=== PATIENT | female | born 1975 | race Caucasian/White ===

== ENCOUNTER 2020-08-07 04:34 | Observation (INO) | payer SELFPAY ==
[2020-08-07] VITALS (15 sets, daily range): BP systolic 104–149; BP diastolic 64–85; PULSE 60–105; RESP 12–20; TEMP 36.3–37.2; O2SAT 94–100; BMI 29.0
--- NOTE | 2020-08-07 | SCC_ITS ---
Procedure: 1. Cystoscopy with left retrograde ureteropyelogram, ureteroscopy, laser, stent 18.4 seconds of fluoroscopic guidance, for a cumulative dose of 4.41 mGy, was provided to Dr. Amos by the radiology department. C-arm images of the abdomen/pelvis were saved for the patient's permanent record. [facility]
--- NOTE | 2020-08-07 05:32 | P.HP_ITS ---
Providers/Chief Complaint Admitting Physician: Mauricio Amos MD Chief Complaint: Refractory Renal Colic, stone History of Present Illness Vicky Temlpe is a 44 year old female direct admitted from [facility] for diagnosis of ureteral stone with refractory renal colic; failed outpatient management and returned for second ED visit with uncontrolled pain, nausea, vomitting. No gross hematuria. Pain was described as severe. Reported a history of prior kidney stones. Work-up, 08/05/2020 and 08/06/2020. No evidence for UTI but did have microscopic hematuria. White count was 6.2, potassium was 3.1, creatinine 0.6, normal LFTs. CT scan, stone protocol reportedly demonstrated a 5 mm LEFT DISTAL ureteral stone. Additional nonobstructing right renal calculus. On her initial visit 08/05/2020 her symptoms were well controlled and she was discharged for outpatient management but returned on 08/06/2020 with refractory symptoms and transfer request was made by [place] to [facility]. PLANS: 1. Obtain KUB to compare with CT scan once it is loaded into the system 2. Reviewed her options which include further conservative management inpatient or outpatient versus surgical intervention. Reviewed ESWL versus endoscopy. Ultimately she decided to proceed with endoscopy. Plan will be for cystoscopy, LEFT: Retrograde, ureteroscopy, laser, stent. Benefits risk potential c omplications alternatives perioperative expectations and limitations fully reviewed. Informed consent was obtained. We will have her sign the appropriate papers preoperatively. 3. She has not had Covid in the last 90 days or ever, she has not been vaccinated, she has no symptoms of Covid, and has not been tested in the last 5 to 7 days. We will observe routine Covid precautions perioperatively. Review of Systems Const: Reports: malaise; Denies: fever(s) or chills Eyes: Reports: blurry vision; Denies: change in vision ENMT: Denies: hoarseness Card: Denies: chest pain or palpitations Resp: Denies: dyspnea, productive cough, non-productive cough or wheezing GI: Reports: abdominal pain, nausea and vomiting : Reports: flank pain; Denies: hematuria Musc: Denies: joint pain, joint warmth or joint stiffness Skin/Breast: Denies: rash Neuro: Denies: confusion, behavioral changes or Slurred speech present Psych: Denies: anxiety or depression Endo: Denies: flushing John Paul/Lymph: Denies: easy bruising, easy bleeding or tender lymph nodes All/Imm: Denies: urticaria or acute wheezing Medications/Allergies Home Medications Medication Instructions Recorded Confirmed Last Taken Type No Known Home Medications 08/07/20 08/07/20 Unknown History Allergies Allergy/AdvReac Type Severity Reaction Status Date / Time No Known Drug Allergies Allergy Unknown Unknown Verified 08/07/20 05:42 PFSH Acute PFSH: Surgical History History of bariatric surgery History of tubal ligation Social History Smoking and tobacco status: never smoked Second hand smoke exposure: No ( Not for years ) Alcohol intake: current Alcohol intake frequency: holidays/special occasions only Alcohol type: hard liquor Substance/Drug Use: never Physical Exam Const: COMMON NORMALS: alert GENERAL APPEARANCE: well kempt and well developed ORIENTATION/CONSCIOUSNESS: not confused HENMT: HEAD & SCALP: normocephalic and atraumatic Eye: COMMON NORMALS: conjunctivae normal and no scleral icterus Neck/C-Spine: COMMON NORMALS: full ROM GENERAL: Yes normal visual inspection Lymph: LYMPHATIC: No no lymphadenopathy noted and No no lymphedema noted Chest: OTHER: Normal chest wall movement Resp: COMMON NORMALS: normal respiratory effort EFFORT & INSPECTION: No labored and No Actively coughing AUSCULTATION: clear to auscultation bilaterally and no wheezes Cardio: COMMON NORMALS: regular rate and regular rhythm BRUITS: no carotid bruits GI: COMMON NORMALS: Soft to palpation and no masses PALPATION: Yes Tenderness to palpation present (GI) Details: LUQ : BLADDER/KIDNEY EXAM: Yes bladder normal to palpation and Yes CVA tenderness on the left Back/Pelvis: GENERAL BACK: Yes CVA tenderness CVA tenderness: left Extremity: COMMON NORMALS: no clubbing, cyanosis or edema Neuro: COMMON NORMALS: no focal motor deficits SENSORIUM/ORIENTATION: Yes alert Psych: COMMON NORMALS: mental status grossly normal, Normal thought process present and cooperative APPEARANCE: Yes grossly normal and Yes well kempt ATTITUDE: Yes calm and Yes engaged THOUGHT PROCESS: Normal thought process present Skin: COMMON NORMALS: no rashes or lesions noted and no jaundice A&P Assessment and plan (1) Renal colic: Refractory left renal colic associated with 5 mm left distal ureteral obstructing stone on CT scan 08/05/2020. Status: Acute (2) Ureteral calculus: 5 mm left distal ureteral stone diagnosed 08/05/[address] scan at [facility]. Failed conservative management and presented with refractory nausea vomiting and pain back to the emergency department and was transferred here for further evaluation. Status: Acute (3) Intractable nausea and vomiting: Status: Acute (4) Urolithiasis: Multi stone former Status: Acute Attestations Medical Necessity Statement*: Failed conservative management of 5 mm left distal ureteral stone. Unable to hold fluids down. Could not control pain on outpatient management appropriate protocols. Admitted for further evaluation and treatment. Time Spent in Patient Care: Greater than 35 minutes Coding Level of Care Code Acute Rate Clerk for [facility] Fwd Diagnoses Renal colic N23 Ureteral calculus N20.1 Intractable nausea and vomiting R11.2 Urolithiasis N20.9
[2020-08-07] MEDS: sodium chloride 0.9% 1,000 ML 100 ML IV (06:20)
--- NOTE | 2020-08-07 07:24 | XR_ITS ---
WS: [id number] KUB, AP view, 08/07/2020 Clinical Data: 5 mm left distal ureteral stone Comparison: CT abdomen and pelvis, 08/05/2020. Findings: No abnormal intraabdominal masses are seen. There is no dilatated small bowel or evidence of obstruct ion. No definite renal calcifications are seen. Stool and fecal material obscures detail over the left kid francisco j. There are numerous phleboliths in the true pelvis and is difficult to evaluate whether one repre sents a ureteral vesicle junction calculus. XR/XR KUB [id number] Impression: Negative for definite renal or ureteral calculi.
--- NOTE | 2020-08-07 11:28 | PC.CHAP ---
Pastoral Care Encounter/Spiritual Assessment Type of Contact [] Declined haul truck driver visit [] Patient/Family/Request visit [] Outpatient visit [] Follow-up visit [] Physician referral [] Code/Alert [x] Routine visit [] Staff referral [] Actively dying [] Patient sleeping [] Family support [] [] Out of room [] Palliative care [] [x] Receiving care in room [] Pre-surgical visit [] Trauma [] Long length of stay [] ICU visit [] Other: Relational/Emotional Strength [x] Patient feels connected with others/family/visitors/staff [] Distress [] Loneliness/isolation [] Abandonment Spirituality of Patient [x] Person of Rajni [] Attends Cheondoism of their Rajni [x] Believes in Prayer [] Reads Bible or Yarsanism materials [] There are Spiritual issues to be addressed Discharge Door Operator Interventions [x] Prayer [x] Active listening [x] Non-anxious presence [x] Spiritual/emotional support [] Crisis/trauma care [x] Spiritual counseling [] Bereavement support [] Provided bereavement packet [] Provided Bible/devotional materials [] Provided toy/stuffed animal, coloring book to patient or family member [] Provided Communion [] Anointing/[place] [] Salvation [x] Completed spiritual assessment [] Other: Impact on Illness or Injury [] Angry [] Fearful [x] Anxious [] Often cries [] Exhaustion [x] Unable to work [] Unable to attend mandaeism [] Unable to walk/stand [] Unable to read [] Unable to drive [] Unable to eat/drink [] Unable to sleep [] Unable to be with family [] Patient intubated [] Other: Summary Respatory colic pain, doesn't about her health, check on what needs to done, negtive / desn't know when she can go home Time spent with patient 10 mins
--- NOTE | 2020-08-07 11:34 | PC.CHAP ---
Pastoral Care Encounter/Spiritual Assessment Type of Contact [] Declined motorcycle mechanic apprentice visit [] Patient/Family/Request visit [] Outpatient visit [x] Follow-up visit [] Physician referral [] Code/Alert [] Routine visit [] Staff referral [] Actively dying [] Patient sleeping [] Family support [] [] Out of room [] Palliative care [] [] Receiving care in room [] Pre-surgical visit [] Trauma [] Long length of stay [] ICU visit [] Other: Relational/Emotional Strength [] Patient feels connected with others/family/visitors/staff [] Distress [] Loneliness/isolation [] Abandonment Spirituality of Patient [] Person of Rajni [] Attends Rastafari of their Rajni [] Believes in Prayer [] Reads Bible or Worship materials [] There are Spiritual issues to be addressed Motor Coach Tour Operator Interventions [] Prayer [] Active listening [] Non-anxious presence [] Spiritual/emotional support [] Crisis/trauma care [] Spiritual counseling [] Bereavement support [] Provided bereavement packet [] Provided Bible/devotional materials [] Provided toy/stuffed animal, coloring book to patient or family member [] Provided Communion [] Anointing/[place] [] Salvation [] Completed spiritual assessment [] Other: Impact on Illness or Injury [] Angry [] Fearful [] Anxious [] Often cries [] Exhaustion [] Unable to work [] Unable to attend moravian [] Unable to walk/stand [] Unable to read [] Unable to drive [] Unable to eat/drink [] Unable to sleep [] Unable to be with family [] Patient intubated [] Other: Summary Follow-up visit Time spent with patient 5 mins
[2020-08-07] MEDS: HYDROmorphone 1 mg/mL INJ 1 mL 0.5 MG IVP ×2 (13:55→14:54)
[2020-08-07] MEDS: diphenhydrAMINE 50 mg/mL SDV 1mL 12.5 MG IVP (13:57)
[2020-08-07] MEDS: sodium chloride 0.9% 1,000 ML 30 ML IV (14:04)
--- NOTE | 2020-08-07 14:49 | ANES.PREANE2 ---
Pre-Anesthetic Assessment Pre-Anesthetic Assessment: Height/Weight: Height 1.68 m Weight 81.647 kg Temp Pulse Resp BP Pulse Ox 98.3 F 64 18 133/85 99 08/07/20 13:31 08/07/20 13:31 08/07/20 13:55 08/07/20 13:31 08/07/20 13:55 Proposed Procedure: Operation Date: 08/07/20 14:35 Proposed Procedures p Cystoscopy(Not Applicable) - Mauricio Amos MD s Retrograde Pyelogram(Left) - Mauricio Amos MD s Ureteroscopy(Left) - Mauricio Amos MD s Laser Lithotripsy(Left) - Mauricio Amos MD s Ureteral Stent Placement(Left) - Mauricio Amos MD Was Beta Abelino taken within 24 hours: N/A Was Clonidine taken within 24 hours: N/A Last intake: Intake Last Liquid Date 08/05/20 Last Liquid Time 18:00 Last Solid Date 08/05/20 Last Solid Time 21:00 Social: Social History: No alcohol and No tobacco Exam: Pre-Anes Outpt Exam: alert, oriented x 3, clear to auscultation bilaterally and regular rate & rhythm Airway: Submandibular: WNL Cervical ROM: WNL MP: 2 Dentition: Full History/ROS: No significant history except as noted : Comments: Kidney stones Anesthetic Plan: ASA status: 2 Anesthesia: General Risk of > 500 ml blood loss (7ml/kg in children): No Meds/Allergies Current Medications: Current Medications Generic Name Dose Route Start Last Admin Trade Name Freq PRN Reason Stop Dose Admin Sodium Chloride 1,000 mls @ 100 m ls/hr 08/07/20 05:00 08/07/20 12:57 Sodium Chloride 0.9% IV 0 mls/hr .Q10H CARLOS ALBERTO Infusion Sodium Chloride 1,000 mls @ 30 ml s/hr 08/07/20 13:45 08/07/20 14:04 Sodium Chloride 0.9% IV 08/08/20 13:44 30 mls/hr .Q24H CARLOS ALBERTO Administration PFSH Anesthesia PFSH: Surgical History (Updated 08/07/20 @ 06:58 by Mauricio Amos MD) History of bariatric surgery History of tubal ligation Social History Smoking and tobacco status: never smoked Second hand smoke exposure: No ( Not for years ) Alcohol intake: current Alcohol intake frequency: holidays/special occasions only Alcohol type: hard liquor Substance/Drug Use: never Data Anesthesia Cardiac Studies: No Data to Display
--- NOTE | 2020-08-07 15:10 | P.OP_ITS ---
Operative Report Date of procedure: August 07, 2020 Pre-op Diagnosis: Refractory left renal colic secondary to left distal ureteral stone Post-op diagnosis: same Procedure Done: 1. Cystoscopy with left retrograde ureteropyelogram, ureteroscopy, laser, stent Implants: Left ureteral stent: 6 Nigerien by 26 cm double-pigtail without string Pathology: Stone fragments Surgeon: Dandre Anesthesia: General Estimated blood loss: Minimal Urine output: Not measured Complications: None Findings: Left distal ureteral stone in the expected position. Fragmented with laser. Ureteral stent left indwelling. - Condition: stable Disposition: PACU Brief History: Vicky is a very pleasant 44-year-old white female who I evaluated for the first time today as a direct admission from [facility] emergency department for refractory symptoms related to left distal ureteral stone diagnosed on CT scan 08/05/2020. No evidence of infection but was having severe intractable nausea and vomiting along with pain. Follow-up KUB showed evidence of a faint calcification in the area of the left distal ureter consistent with the stone seen on CT scan. She was offered option for continued conservative management inpatient or outpatient but due to the severity of her symptoms and the difficulty controlling her nausea and pain even with significant dosing of parenteral antiemetics and narcotics she elected therefore to proceed with surgery. Options reviewed including ESWL as well as endoscopy and she chose endoscopic treatment. We reviewed that sometimes with severe inflammatory changes passing a wire and the stent is the best that can be done for passive dilation and drainage of the upper tract. In very rare circumstances the possibility of not achieving access from a retrograde perspective and therefore requiring antegrade access to the kidney via percutaneous nephrostomy tube placement and possibly antegrade passing of a wire and stent. That would have to be performed elsewhere at an institution capable of interventional radiology. Procedure: After urgent evaluation examination and obtaining of informed consent she was taken to the operating suite on 08/07/2020 where general anesthesia was administered without difficulty after appropriate timeout was performed, SCDs confirmed to be functioning, preoperative antibiotics administered, beta-nicolle protocol confirmed. Prepped and draped in usual sterile fashion in dorsolithotomy position paying careful attention to avoiding pressure points. 21 Nigerien cystoscope with 30 degree lens was introduced into the urethra meatus and advanced into the bladder under videoscopy. The bladder was systematically examined. No stone was seen. An 8 Nigerien cone-tipped catheter was intubated to the right ureteral orifice for right retrograde ureteropyelogram: Contrast was injected demonstrating normal course and caliber of the ureter with a filling defect consistent with a stone as expected based on CT scan and KUB findings. A flexible tip guidewire was then advanced up the left ureter bypassing the stone and the distal ureter was dilated with a 15 Nigerien 4 cm balloon.There was a tight band just below the level of the stones previous location and it required 12 boom of pressure to get it to open. The wire was secured to the drapes as a safety wire. The offset semirigid ureteroscope was advanced up the ureter next to the guidewire and the stone was encountered and fragmented with a 365 ?m thulium superpulse laser fiber and a small fragments that were then flushed free from the ureter and removed with baskets. Final inspection revealed no additional stone fragments but the area where the stone had been lodged was very inflamed both from its tight obstruction as well as the dilation. For that reason it was decided to leave a stent indwelling. The cystoscope was then backloaded over the guidewire and a 6 Nigerien by 26 cm double-pigtail stent without string was advanced over the guidewire through the cystoscope into appropriate position as confirmed via fluoroscopy and cystoscopy. The bladder was drained and the procedure was completed. She tolerated procedure well without complications and was awakened in the operating room and returned to recovery room in stable condition. PLANS: 1. If she recovers well and her symptoms are well controlled she could be discharged tonight. That will be arranged for pending that option. 2. If not then will plan on reevaluation for discharge in the morning.
--- NOTE | 2020-08-07 16:07 | SC_ITS ---
WS: [id number] C-arm fluoroscopy for cystoscopy, 08/07/2020 Clinical Data: Cystoscopy with left retrograde ureteropyelogram, ureteroscope Comparison: KUB, 08/07/2020 Findings: Contrast was injected by Dr. Amos into the distal left ureter. There is an intraluminal filling d efect which is probably a distal ureteral calculus. SC/C-arm FL for Urology Impression: Left retrograde pyelogram.
--- NOTE | 2020-08-07 17:35 | P.DS_ITS ---
Discharge Providers Date of Admission: 08/07/20 04:34 Date of Discharge: August 07, 2020 Attending Provider at Admission: Mauricio Amos MD Attending Provider at Discharge: Mauricio Amos MD Diagnoses at Discharge Discharge Diagnosis (1) Renal colic: Status: Resolved (2) Ureteral calculus: Status: Suspected (3) Intractable nausea and vomiting: Status: Resolved (4) Urolithiasis: Status: Chronic Reason for Visit Reason for Visit: Refractory Renal Colic, stone Hospital Course Hospital Course She was admitted via direct admission from [facility] to [facility] for refractory left renal colic secondary to left distal ureteral stone identified on CT scan 08/05/2020. KUB on the morning of admission demonstrated the stone in roughly the same position. She continued to have severe symptoms despite aggressive pain medication and antiemetics and ultimately chose to proceed with endoscopy to remove the stone. On the evening of 08/07/2020 she was taken to the operating room for cystoscopy, left retrograde ureteropyelogram, laser lithotripsy, and stent. Intraoperative findings showed a very narrowed area just below the stone with evidence of high-grade obstruction proximal to that narrowed area. High-pressure dilation was required to open up the ureter with the balloon but this allowed easy access of the ureteroscope to fragment the stone and remove all the fragments. Because of the significant inflammation related to the impaction of the stone at that site as well as the dilation trauma it was decided to leave a stent indwelling. No string was attached. Plans were to discharge on the evening of the procedure if she recovered well and follow-up in 1 week. Physical Exam Const: COMMON NORMALS: no acute distress, alert and well nourished GENERAL APPEARANCE: well kempt and well developed ORIENTATION/CONSCIOUSNESS: not confused Resp: COMMON NORMALS: normal respiratory effort EFFORT & INSPECTION: No labored and No Actively coughing Neuro: COMMON NORMALS: no focal motor deficits SENSORIUM/ORIENTATION: Yes alert Psych: COMMON NORMALS: mental status grossly normal APPEARANCE: Yes grossly normal and Yes well kempt ATTITUDE: Yes calm and Yes engaged Discharge Data Data Completed and Pending: Completed Studies During Hospitalization Category Date Time Status XR KUB [id number] Rout ine Exams 08/07/20 07:24 Completed Pending at discharge Category Date Time Status C-arm Fluoroscopy [id number] Routine Exams 08/07/20 16:07 Taken Stone Analysis Ro utine Lab 08/07/20 17:24 Uncollected Pathology: Surgic al [PTH] Routine Pth 08/07/20 17:26 Ordered Vitals: Last Vital Signs Temp 98.3 F 08/07/20 13:31 Pulse 64 08/07/20 13:31 Resp 18 08/07/20 14:54 BP 133/85 08/07/20 13:31 Pulse Ox 97 08/07/20 14:54 Discharge Plan Discharge Patient Disposition: Home Condition: Stable Prescriptions: New cephalexin 500 mg capsule 500 mg PO BID 7 Days Qty: 14 RF: 0 Discharge Orders: Discharge Order (Routine); Ordered 08/07/20 Ordered By: Mauricio Amos Referrals: Mauricio Amos MD [Physician] - 1 week (Cystoscopy stent removal) Discharge Diet: Usual diet Discharge Activity: Increase activity as tolerated Patient Instructions: Opioid Safety Activity Restrictions/Additional Instructions: 1. The stone was in the expected position and easily fragmented and the fragments removed. 2. The ureter just below where the stone was lodged was very inflamed and required significant dilation pressures to get it open enough to pass the scope to the stone. For that reason a stent was left indwelling and needs to be removed in my office in at a minimum 1 week. 3. Please call [phone] to schedule a follow-up appointment for approximately 1 week Discharge Attestations Time Spent in Discharge Care*: less than 30 min Quality Metrics Clinical Quality Measures During this hospital stay, did patient experience: None Coding Level of Care Code Acute Chg FW DC note Diagnoses Renal colic N23 Ureteral calculus N20.1 Intractable nausea and vomiting R11.2 Urolithiasis N20.9
--- NOTE | 2020-08-07 17:42 | P.PCN_ITS ---
PACU note PACU note: VSS, Good respiratory effort, report to BOOM STICK WORKER Post-Anesthesia Exam: awake
--- NOTE | 2020-08-07 17:42 | PM.PACU ---
PACU note PACU note: VSS, Good respiratory effort, report to CERTIFIED PROFESSIONAL ERGONOMIST Post-Anesthesia Exam: awake
--- NOTE | 2020-08-07 20:32 | ANE.PACU2 ---
Inpatient post-anesthesia follow up: Airway intact: Yes Vital signs: Temperature 98.6 F Pulse Rate 74 Respiratory Rate 20 Blood Pressure 149/82 Pulse Oximetry 99 Oxygen Delivery Me thod Room Air Oxygen Flow Rate Fraction of Inspir ed Oxygen Hydration adequate: Yes Nausea and vomiting: No Pain level: 2 Mental status: Baseline
--- NOTE | 2020-08-07 23:26 | PC.NURSE ---
Patient discharged home with friend. IV removed with catheter in tact. Patient educated on discharge orders with medications and follow up appointments. Patient what take to friend's vehicle via wheelchair by RECOVERY COORDINATOR.
== END 2020-08-07 20:00 | disposition home or self-care (01) ==
PROVIDERS: Admitting Provider Urology; Visit Provider Urology
PROC: 0TJB8ZZ Inspection of Bladder, Via Natural or Artificial Opening Endoscopic (ICD-10-PCS; CPT 52000; principal; 2020-08-07 14:35)
PROC: (CPT 74420; 2020-08-07 14:35)
PROC: 0TJ98ZZ Inspection of Ureter, Via Natural or Artificial Opening Endoscopic (ICD-10-PCS; CPT 52351; 2020-08-07 14:35)
PROC: (CPT 50605; 2020-08-07 14:35)
DX: N23 Unspecified renal colic (principal); N20.1 Calculus of ureter; R11.2 Nausea with vomiting, unspecified; N20.9 Urinary calculus, unspecified
CPT/HCPCS: 52356; 74018; 76000; 82365; 88300; C2625; G0378; G0379; J1100; J1170; J1200; J2405; J2704; J2710; J3010; J3490; J7030

== ENCOUNTER → 2020-09-08 09:14 | Outpatient (BNVA) | payer SELFPAY | PROVIDERS: Visit Provider Urology | DX: N20.9 Urinary calculus, unspecified (principal); R30.9 Painful micturition, unspecified; Z96.0 Presence of urogenital implants | CPT/HCPCS: 81003; 87086 ==

== ENCOUNTER 2022-09-29 12:46 | Emergency (ER) | payer SELFPAY ==
[2022-09-29 12:47] VITALS: BP 107/63; PULSE 106; RESP 18; TEMP 37.8; O2SAT 97; BMI 22.9
[2022-09-29 14:21] LABS: Basophils # 0.1 10^3/uL (0.0-0.1); Basophils % 0.5 %; Eosinophils # 0.1 10^3/uL (0.0-0.8); Eosinophils % 0.5 %; Hematocrit 31.6 % (37.0-47.0); Hemoglobin 9.8 g/dL (11.5-15.3); Lymphocytes % 10.2 %; Mean Corpuscular Hemoglobin 28.2 pg (28.0-34.0); Mean Corpuscular Volume 90.8 fl (81-99); Mean Platelet Volume 9.5 fL (7.4-10.4); Monocytes % 10.2 %; Neutrophils # 7.48 10^3/uL (1.8-7.7); Neutrophils % 78.3 %; Nucleated Red Blood Cells % 0 %; Platelet Count 235 10^3/cmm (130-400); Red Blood Count 3.48 10^6/uL (4.1-5.3); Red Cell Distribution Width 14.6 % (12.1-15.1); White Blood Count 9.6 10^3/uL (4.0-10.0)
[2022-09-29 14:25] VITALS: BP 98/60; PULSE 89; RESP 14; O2SAT 100
--- NOTE | 2022-09-29 14:25 | CT_ITS ---
WS: [id number] CT ABDOMEN AND PELVIS WITH CONTRAST HISTORY: Bilateral lower abdominal tenderness TECHNIQUE: Imaging performed of the abdomen and pelvis with IV contrast. Single phase imaging of the abdomen. Coronal and sagittal reformats are submitted. All CT scans at [facility] use at [address] one of these dose optimization techniques: automated exposure control; mA and/or kV adjustment per patient size (includes targeted exams where dose is matched to clinical indication); or iterative re construction. IV CONTRAST: Omnipaque 350; 100 mL IV. Oral contrast: No DLP: 366.67 mGy.cm COMPARISON: 08/06/2019 Lower thorax: Lung bases are clear. Heart is normal size. Moderate size hiatal hernia. Postsurgical c hanges are noted the GE junction. These are very similar in appearance to 08/05/2020. Liver/biliary system: Mildly enlarged liver. No bile duct dilatation. Gallbladder: Normal. No gallstones or wall thickening. No pericholecystic fluid. Pancreas: Normal size pancreas and pancreatic duct. No adjacent inflammation. Spleen: Normal size spleen. No mass or infarct. Adrenal glands: Normal. Right kidney: Nonobstructing 4 mm calcification lower pole. Left kidney: Top normal size. Several parapelvic cysts in the mid to lower pelvis no obstruction of t he kidney. Aorta: Normal. Lymphadenopathy: None. Free fluid: None. GI tract: No GI tract obstruction. GI tract is difficult to visualize as there is no fat t he loops of the GI tract. There is a small amount of increased fluid within the cecum and RIGHT colon . No wall thickening or obstruction at this time. The appendix is not visualized. Abdominal wall: Unremarkable abdominal wall. No hernia. Pelvis: Mild uterine enlargement measuring 9.9 cm in length. No free fluid in the pelvis. No adnexal masses. Bones: Unremarkable. CT/CT abdomen pelvis w con* [id number] IMPRESSION: 1. Very mild fluid distention of the small bowel loops within the pelvis and p roximal colon. Consider mild gastroenteritis. The appendix is not visualized. P atient did not provide a history of a prior appendectomy. 2. No free fluid. 3. No renal obstruction.
--- NOTE | 2022-09-29 14:26 | W.ED.ABDPA2 ---
HPI - Abdominal Pain General: Chief Complaint: Abdominal Pain Stated Complaint: low abd pain Time Seen by Provider: 09/29/22 14:17 History of Present Illness: Patient is a 46-year-old female to come to the ED with abdominal pain. Symptoms started approximately 3 days ago. Pain is located in the lower abdomen and pelvis bilaterally. She rates the pain a 7 out of 10 when she moves or is up walking around. If she is laying still she says the pain is more mild and tolerable. She does endorse some pain radiating up into the right upper quadrant of her abdomen. The pain got so severe 2 nights ago that she had nausea and an episode of emesis. Denies any fevers, upper respiratory symptoms, chest pain, shortness of breath, dysuria, hematuria, vaginal bleeding, vaginal discharge, vaginal lesions, diarrhea, constipation or blood in stool. Associated Symptoms: Reports nausea and vomiting; Denies chills, constipation, diarrhea, dysuria, fever(s), hematochezia and hematuria Review of Systems Const: Denies: fever(s), chills or fatigue Eyes: Denies: change in vision or eye discomfort ENMT: Denies: throat pain, odynophagia, nasal discharge or nasal congestion Card: Denies: chest pain, palpitations, edema, swelling of feet/ankles, dyspnea on exertion or orthopnea Resp: Denies: dyspnea, productive cough or non-productive cough GI: Reports: abdominal pain, nausea and vomiting; Denies: diarrhea, constipation or hematochezia : Denies: flank pain, dysuria or hematuria Musc: Denies: neck pain, back pain or extremity swelling Skin/Breast: Denies: rash or new lesions Neuro: Denies: headache(s), numbness in extremities or weakness in extremities PFS ED PFSH: Medical History (Updated 09/29/22 @ 16:09 by CHUCK Grullon) No pertinent family history Surgical History History of bariatric surgery History of tubal ligation Social History Smoking and tobacco status: never smoked Alcohol intake: current Alcohol intake frequency: holidays/special occasions only Alcohol type: hard liquor Substance/Drug Use: never Marital status: Current occupational status: employed Physical Exam Const: COMMON NORMALS: no acute distress, patient oriented x3 and alert HENMT: COMMON NORMALS: normocephalic HEAD & SCALP: normocephalic MOUTH: Normal oral and palatal mucosa present THROAT: posterior oropharynx normal and uvula midline Neck/C-Spine: COMMON NORMALS: supple GENERAL: Yes normal visual inspection Resp: COMMON NORMALS: normal respiratory effort, No retractions, No use of accessory muscles and clear to auscultation bilaterally AUSCULTATION: clear to auscultation bilaterally Cardio: COMMON NORMALS: regular rate, regular rhythm, S1 normal heart sound present, S2 normal heart sound present, No gallops present (Cardio), No clicks present (Cardio), No murmurs present (Cardio) and Peripheral pulses 2+ throughout RATE: regular rate RHYTHM: regular rhythm HEART SOUNDS: S1 normal heart sound present and S2 normal heart sound present PERIPHERAL PULSES: Peripheral pulses 2+ throughout GI: COMMON NORMALS: Normal to inspection, nondistended, normoactive bowel sounds present, Soft to palpation and no masses PALPATION: Yes Soft to palpation, Yes Tenderness to palpation present (GI) (Patient has generalized tenderness throughout abdomen) Details: LLQ, RLQ and RUQ and Yes Bladder palpation abnormal : COMMON NORMALS: Yes no CVA tenderness BLADDER/KIDNEY EXAM: Yes no CVA tenderness and Yes Bladder palpation abnormal Bladder abnormal details: tender Back/Pelvis: COMMON NORMALS: no CVA tenderness Extremity: COMMON NORMALS: normal to inspection Neuro: COMMON NORMALS: patient oriented x3 SENSORIUM/ORIENTATION: Yes alert GAIT: Yes Normal gait present Skin: GENERAL SKIN EXAM: dry skin Course Vital Signs: Vital signs: Vital Signs Temperature 100.0 F H 09/29/22 12:47 Pulse Rate 89 09/29/22 14:25 Respiratory Rate 14 09/29/22 14:25 Blood Pressure 98/60 09/29/22 14:25 Pulse Oximetry 100 09/29/22 14:25 Oxygen Delivery Me thod Room Air 09/29/22 14:25 MDM - Abdominal Pain Medical Decision Making Patient is a 46-year-old female to come to the ED with abdominal pain. Symptoms started approximately 3 days ago. Pain is located in the lower abdomen and pelvis bilaterally. She rates the pain a 7 out of 10 when she moves or is up walking around. If she is laying still she says the pain is more mild and tolerable. She does endorse some pain radiating up into the right upper quadrant of her abdomen. The pain got so severe 2 nights ago that she had nausea and an episode of emesis. Denies any fevers, upper respiratory symptoms, chest pain, shortness of breath, dysuria, hematuria, vaginal bleeding, vaginal discharge, vaginal lesions, diarrhea, constipation or blood in stool. Vitals are stable. Patient appears nontoxic and in no acute distress or pain. Patient has left lower quadrant right lower quadrant abdominal tenderness along with tenderness to bladder. Rest of exam is benign. White count is normal at 9.6 and hemoglobin of 9.8. Rest of CBC and CMP are unremarkable. UA shows a UTI with positive nitrates multiple white blood cells, RBCs and 3+ bacteria. CT of abdomen pelvis shows no acute findings but notes some very mild fluid distention of the small bowel which could correlate with gastroenteritis. Patient was given dose of IV antibiotics since the UTI seems to be progressing. She was stable for discharge home and diagnosed with acute cystitis and sent home with a prescription for an antibiotic. Return to ED precautions given. Follow-up with PCP in the next week for reevaluation. Patient understood and agreed with plan. Lab Data I reviewed the patient's lab results. 09/29/22 14:12 09/29/22 14:12 Labs/Radiology: Radiology Impressions Abdomen/Pelvis CT 09/29/22 14:25 IMPRESSION: 1. Very mild fluid distention of the small bowel loops within the pelvis and proximal colon. Consider mild gastroenteritis. The appendix is not visualized. Patient did not provide a history of a prior appendectomy. 2. No free fluid. 3. No renal obstruction. Laboratory Results WBC 9.6 10^3/uL (4.0-10.0) 09/29/22 14:12 RBC 3.48 10^6/uL (4.1-5.3) L 09/29/22 14:12 Hgb 9.8 g/dL (11.5-15.3) L 09/29/22 14:12 Hct 31.6 % (37.0-47.0) L 09/29/22 14:12 MCV 90.8 fl (81-99) 09/29/22 14:12 MCH 28.2 pg (28.0-34.0) 09/29/22 14:12 MCHC 31.0 g/dL (30.0-36.0) 09/29/22 14:12 RDW 14.6 % (12.1-15.1) 09/29/22 14:12 Plt Count 235 10^3/cmm (130-400) 09/29/22 14:12 MPV 9.5 fL (7.4-10.4) 09/29/22 14:12 Neut % (Auto) 78.3 % 09/29/22 14:12 Lymph % (Auto) 10.2 % 09/29/22 14:12 Rankin % (Auto) 10.2 % 09/29/22 14:12 Eos % (Auto) 0.5 % 09/29/22 14:12 Baso % (Auto) 0.5 % 09/29/22 14:12 Neut # (Auto) 7.48 10^3/uL (1.8-7.7) 09/29/22 14:12 Lymph # (Auto) 1.0 10^3/uL (0.8-4.8) 09/29/22 14:12 Rankin # (Auto) 1.0 10^3/uL (0.2-0.9) H 09/29/22 14:12 Eos # (Auto) 0.1 10^3/uL (0.0-0.8) 09/29/22 14:12 Baso # (Auto) 0.1 10^3/uL (0.0-0.1) 09/29/22 14:12 Nucleated RBC % (auto) 0 % 09/29/22 14:12 Nucleated RBCs # 0.0 /100WBC 09/29/22 14:12 Sodium 136 mmol/L (136-145) 09/29/22 14:12 Potassium 3.8 mmol/L (3.5-5.1) 09/29/22 14:12 Chloride 100 mmol/L (98-107) 09/29/22 14:12 Carbon Dioxide 24 mmol/L (22-29) 09/29/22 14:12 Anion Gap 15.8 (5-19) 09/29/22 14:12 BUN 13 mg/dL (6-20) 09/29/22 14:12 Creatinine 0.4 mg/dL (0.5-0.9) L 09/29/22 14:12 GFR Calculation 171.8 mL/min (90-130) H 09/29/22 14:12 Glucose 89 mg/dL (65-115) 09/29/22 14:12 Calculated Osmolality 282 mOsm/kg (285-295) L 09/29/22 14:12 Calcium 8.9 mg/dL (8.5-10.5) 09/29/22 14:12 Total Bilirubin 1.3 mg/dL (0.15-1.2) H 09/29/22 14:12 AST 41 U/L (0-32) H 09/29/22 14:12 ALT 28 U/L (0-33) 09/29/22 14:12 Alkaline Phosphatase 88 U/L (35-105) 09/29/22 14:12 Total Protein 7.5 g/dL (6.6-8.7) 09/29/22 14:12 Albumin 3.8 g/dL (3.5-5.2) 09/29/22 14:12 Globulin 3.7 g/dL (1.3-4.6) 09/29/22 14:12 Lipase 17 U/L (13-60) 09/29/22 14:12 HCG, Qual Negative (Negative) 09/29/22 14:12 Urine Color Samia (Yellow) 09/29/22 13:31 Urine Appearance Cloudy (CLEAR) A 09/29/22 13:31 Urine pH 6 (5-7) 09/29/22 13:31 Ur Specific Fife 1.020 (1.005-1.030) 09/29/22 13:31 Urine Protein Neg (Negative) 09/29/22 13:31 Urine Glucose (UA) Norm (Normal) 09/29/22 13:31 Urine Ketones 1+ (Negative) H 09/29/22 13:31 Urine Blood Neg (Negative) 09/29/22 13:31 Urine Nitrate Positive (Negative) H 09/29/22 13:31 Urine Bilirubin 1+ (Negative) H 09/29/22 13:31 Urine Urobilinogen 4 mg/dL (Negative) H 09/29/22 13:31 Ur Leukocyte Esterase 1+ (Negative) H 09/29/22 13:31 Urine RBC 0-4 /hpf (0-2) H 09/29/22 13:31 Urine WBC 55-80 /hpf (0-5) H 09/29/22 13:31 Ur Squamous Epith Cells 15-25 /hpf (0-5) H 09/29/22 13:31 Amorphous Sediment Not Reportable 09/29/22 13:31 Urine Bacteria 3+ /hpf (NONE) H 09/29/22 13:31 Discharge Plan Discharge Patient Disposition: Home Clinical Impression: Acute cystitis Qualifiers: Hematuria presence: with hematuria Qualified Code(s): N30.01 - Acute cystitis with hematuria Anemia Qualifiers: Anemia type: unspecified type Qualified Code(s): D64.9 - Anemia, unspecified Condition: Stable Prescriptions: New Bactrim DS 800-160 mg tablet 1 tab PO BID 10 Days Qty: 20 0RF No Action sulfamethoxazole-trimethoprim 800-160 mg tablet 1 tab PO BID Qty: 14 0RF Discharge Orders: Discharge ED (Routine); Ordered 09/29/22 Ordered By: Mat Cruz Discharge Diet: Regular Discharge Activity: Increase activity as tolerated Patient Instructions: Urinary Tract Infection in Women (ED) Activity Restrictions/Additional Instructions: Follow-up with medical provider as directed in the next 5 to 7 days for reevaluation. Take medications as prescribed. Return to the ER or your medical provider if condition worsens. Please read and understand discharge instructions. Thank you for choosing [facility] for your healthcare needs today. Please realize this is an emergency room and that we are providing you with a medical screening exam and this may not be complete and all inclusive of all the testing and or work up that you may need to determine your ailment or severity of your illness. It is very important that you follow up as instructed or that you return to the Emergency Department should you have concerns or if your condition changes or worsens in any way. Coding Level of Care Code ED Ip/[employer] Technician for Nam Covarrubias
[2022-09-29 14:38] LABS: HCG, Serum Qual Negative (Negative)
[2022-09-29 14:47] LABS: Albumin Level 3.8 g/dL (3.5-5.2); Alkaline Phosphatase 88 U/L (35-105); Blood Urea Nitrogen 13 mg/dL (6-20); Calcium 8.9 mg/dL (8.5-10.5); Carbon Dioxide 24 mmol/L (22-29); Chloride 100 mmol/L (98-107); Globulin 3.7 g/dL (1.3-4.6); Glomerular Filtration Rate 171.8 mL/min (90-130); Glucose 89 mg/dL (65-115); Lipase 17 U/L (13-60); Osmolality Calculated 282 mOsm/kg (285-295); Sodium 136 mmol/L (136-145); Total Bilirubin 1.3 mg/dL (0.15-1.2); Total Protein 7.5 g/dL (6.6-8.7)
[2022-09-29 14:49] LABS: Alanine Aminotransferase 28 U/L (0-33); Anion Gap 15.8 (5-19); Aspartate Amino Transferase 41 U/L (0-32); Potassium 3.8 mmol/L (3.5-5.1)
[2022-09-29 14:50] LABS: Add Urine Microscopic? YES; Bilirubin Urine 1+ (Negative); Blood Urine Neg (Negative); Glucose Urine UA Norm (Normal); Ketones Urine 1+ (Negative); Leukocyte Esterase Urine 1+ (Negative); Nitrate Urine Positive (Negative); Protein Urine Neg (Negative); Urine Appearance Cloudy (CLEAR); Urine Color Amber (Yellow); Urobilinogen Urine 4 mg/dL (Negative); pH Urine 6 (5-7)
[2022-09-29] MEDS: iohexol 350 mg/mL 500 mL Btl (per mL) IV (14:56)
[2022-09-29 14:57] LABS: Bacteria Urine 3+ /hpf; RBC Urine 0-4 /hpf (0-2); Squamous Epithelial Cell Urine 15-25 /hpf (0-5); WBC Urine 55-80 /hpf (0-5)
[2022-09-29 14:59] LABS: Add Urine Culture? No
[2022-09-29] MEDS: cefTRIAXone 1,000 MG in sodium chloride 0.9% (plus) 50 ML 100 MG IV (16:27)
--- NOTE | 2022-10-03 06:02 | DCPLANNER ---
TCM called patient due to no primary care physician - no answer at this time.
== END 2022-09-29 16:47 | disposition home or self-care (01) ==
PROVIDERS: Emergency Provider Physician Assistant
DX: N30.00 Acute cystitis without hematuria (principal); D64.9 Anemia, unspecified
CPT/HCPCS: 36415; 74177; 80053; 81001; 83690; 84703; 85025; 96365; 99285; J0696; Q9967